=== PATIENT | female | born 1965 | race Caucasian/White ===

== ENCOUNTER 2020-11-24 09:18 | Observation (INO) ==
[2020-11-24] MEDS ORDERED: methylPREDNISolone 125 MG/2 ML VIAL IVP ONE (09:39)
[2020-11-24] MEDS ORDERED: Ipratropium/Albuterol Neb 3 ML IH ONE (09:41)
[2020-11-24 09:57] LABS: Basophils # 0.1 K/mcL (0.0-0.2); Basophils % 0.9 %; Eosinophils # 0.5 K/mcL (0.0-0.6); Eosinophils % 3.5 %; Hematocrit 45.3 % (35.3-44.9); Hemoglobin 15.2 g/dL (11.5-15.4); Immature Granulocytes % 0.5 % (0-4); Lymphocytes # 1.2 K/mcL (0.6-4.6); Lymphocytes % 8.9 %; Mean Corpuscular HGB Conc 33.6 g/dL (31.6-35.5); Mean Corpuscular Hemoglobin 33.6 pg (28.0-33.3); Mean Corpuscular Volume 100.2 fL (83.0-100.0); Mean Platelet Volume 9.3 fL (9.4-12.4); Monocytes # 0.6 K/mcL (0.0-1.3); Monocytes % 4.3 %; Neutrophils # 11.3 K/mcL (1.6-8.9); Platelet Count 318 K/mcL (140-400); Red Blood Count 4.52 M/mcL (3.82-4.97); Red Cell Distribution Width 12.6 % (11.5-14.5); Segmented Neutrophils % 81.9 %; White Blood Count 13.8 K/mcL (4.3-11.1)
[2020-11-24 10:16] LABS: BUN/Creatinine Ratio 15 (6-26); Blood Urea Nitrogen 12 mg/dL (6-20); Calcium 9.9 mg/dL (8.6-10.3); Carbon Dioxide 27 mEq/L (23-29); Chloride 104 mEq/L (98-107); Glucose 134 mg/dL (70-105); Osmolality,Calculated 286 (280-300); Potassium 4.4 mEq/L (3.5-5.1); Sodium 137 mEq/L (136-145); eGFR For African Americans > 60 (> 60); eGFR For Non-African Americans > 60 (> 60)
[2020-11-24] MEDS ORDERED: Aspirin 325 MG TABLET PO ONE (10:29)
[2020-11-24] MEDS ORDERED: *HR* Heparin 5,000 UNIT/ML VIAL IVP ONE (11:31)
[2020-11-24] MEDS ORDERED: *HR* Heparin 5,000 UNIT/ML VIAL IVP PRN ×2 (11:31)
[2020-11-24] MEDS ORDERED: Acetaminophen 325 MG TABLET PO PRN (12:17)
[2020-11-24] MEDS ORDERED: Naloxone 0.4 MG/ML INJ IVP PRN (12:17)
[2020-11-24] MEDS ORDERED: Ipratropium/Albuterol Neb 3 ML IH PRN (12:19)
[2020-11-24] MEDS ORDERED: Perflutren Lipid Microsphere 1.3 ML in 0.9 % Sodium Chloride 8.7 ML IVP PRN (12:19)
[2020-11-24 12:55] LABS: Hematocrit 43.7 % (35.3-44.9); Mean Corpuscular HGB Conc 34.3 g/dL (31.6-35.5); Mean Corpuscular Hemoglobin 34.3 pg (28.0-33.3); Mean Platelet Volume 9.8 fL (9.4-12.4); Platelet Count 309 K/mcL (140-400); Red Blood Count 4.37 M/mcL (3.82-4.97); Red Cell Distribution Width 12.5 % (11.5-14.5); White Blood Count 12.4 K/mcL (4.3-11.1)
[2020-11-24 13:07] LABS: Heparin anti-factor XA UFH < 0.04 IU/mL (0.30-0.70); INR 0.9; Prothrombin Time 10.8 Seconds (9.4-12.1)
[2020-11-24] MEDS: Azithromycin 500 MG in 0.9 % Sodium Chloride 250 ML IVPB SCH (13:40)
[2020-11-24] MEDS: Heparin 25,000UNIT/250ML 1/2NS 25,000 UNIT/250 ML IV.SOLN IVC SCH (13:40)
[2020-11-24 14:35] LABS: Adenovirus Not Detected (Not Detect); Bordetella Pertussis Not Detected (Not Detect); Chlamydophila pneumoniae Not Detected (Not Detect); Coronavirus 229E Not Detected (Not Detect); Coronavirus HKU1 Not Detected (Not Detect); Coronavirus NL63 Not Detected (Not Detect); Coronavirus OC43 Not Detected (Not Detect); Human Metapneumovirus Not Detected (Not Detect); Human Rhinovirus/Enterovirus Not Detected (Not Detect); Influenza A Subtype 2009 H1 Not Detected (Not Detect); Influenza B Not Detected (Not Detect); Mycoplasma pneumoniae Not Detected (Not Detect); Parainfluenza Virus 1 Not Detected (Not Detect); Parainfluenza Virus 2 Not Detected (Not Detect); Parainfluenza Virus 3 Not Detected (Not Detect); Parainfluenza Virus 4 Not Detected (Not Detect); Respiratory Syncytial Virus Not Detected (Not Detect); SARS-CoV-2 Not Detected (Not Detect)
[2020-11-24 14:46] LABS: Troponin I 0.82 ng/mL (< 0.04)
[2020-11-24] MEDS: Ipratropium/Albuterol Neb 3 ML IH SCH ×2 (16:42→22:04)
[2020-11-24] MEDS: MethylPREDNISolone 40 MG/ML VIAL IVP SCH (18:01)
[2020-11-24] MEDS: Metoprolol XL (24 HR) Succ 25 MG TAB.ER.24H PO SCH (18:01)
[2020-11-25] MEDS: Ipratropium/Albuterol Neb 3 ML IH SCH ×2 (03:44→10:05)
[2020-11-25 05:18] LABS: Basophils % 0.2 %; Eosinophils # 0.2 K/mcL (0.0-0.6); Eosinophils % 0.9 %; Hemoglobin 14.5 g/dL (11.5-15.4); Immature Granulocytes % 0.6 % (0-4); Lymphocytes # 1.2 K/mcL (0.6-4.6); Lymphocytes % 6.7 %; Mean Corpuscular HGB Conc 33.7 g/dL (31.6-35.5); Mean Corpuscular Hemoglobin 33.4 pg (28.0-33.3); Mean Corpuscular Volume 99.1 fL (83.0-100.0); Mean Platelet Volume 9.7 fL (9.4-12.4); Monocytes % 5.3 %; Neutrophils # 15.7 K/mcL (1.6-8.9); Platelet Count 311 K/mcL (140-400); Red Blood Count 4.34 M/mcL (3.82-4.97); Red Cell Distribution Width 12.6 % (11.5-14.5); Segmented Neutrophils % 86.3 %; White Blood Count 18.1 K/mcL (4.3-11.1)
[2020-11-25 05:36] LABS: BUN/Creatinine Ratio 18 (6-26); Blood Urea Nitrogen 13 mg/dL (6-20); Carbon Dioxide 24 mEq/L (23-29); Chloride 106 mEq/L (98-107); Chol/HDL Ratio 2.6 (0-4.9); Cholesterol 306 mg/dL (< 200); Glucose 154 mg/dL (70-105); HDL Cholesterol 118 mg/dL (40-59); LDL Cholesterol,Calculated 168 mg/dL (< 100); Osmolality,Calculated 291 (280-300); Sodium 139 mEq/L (136-145); Triglycerides 102 mg/dL (< 150); eGFR For African Americans > 60 (> 60); eGFR For Non-African Americans > 60 (> 60)
[2020-11-25] MEDS: MethylPREDNISolone 40 MG/ML VIAL IVP SCH (05:42)
[2020-11-25 08:24] LABS: Estimated Average Glucose 120 mg/dl; Hemoglobin A1C 5.8 %
[2020-11-25] MEDS ORDERED: Aspirin Enteric Coated 81 MG Tablet PO SCH (09:00)
[2020-11-25] MEDS: Metoprolol XL (24 HR) Succ 25 MG TAB.ER.24H PO SCH (09:44)
[2020-11-25 11:32] VITALS: BP 139/73; PULSE 71; TEMP 98.3; O2SAT 95
[2020-11-25] MEDS: Heparin 25,000UNIT/250ML 1/2NS 25,000 UNIT/250 ML IV.SOLN IVC SCH (12:24)
[2020-11-25] MEDS: Azithromycin 500 MG in 0.9 % Sodium Chloride 250 ML IVPB SCH (12:29)
[2020-11-25] MEDS ORDERED: Spironolactone 25 MG TABLET PO SCH (13:30)
== END 2020-11-25 14:05 | disposition left against medical advice (07) ==
LOC: EMEROOARM 09:18 → 3ANU 09:18
PROVIDERS: ADMIT Internal Medicine; ATTEND Internal Medicine

== ENCOUNTER 2020-11-26 01:33 | Inpatient (IN) ==
[2020-11-26] MEDS ORDERED: Nitroglycerin 0.4 MG TAB.SUBL SL PRN ×2 (02:21→03:45)
[2020-11-26] MEDS ORDERED: Aspirin 81 MG TAB.CHEW PO ONE (02:21)
[2020-11-26 02:45] LABS: Basophils # 0.1 K/mcL (0.0-0.2); Basophils % 0.5 %; Eosinophils # 0.2 K/mcL (0.0-0.6); Eosinophils % 1.1 %; Hematocrit 45.3 % (35.3-44.9); Immature Granulocytes % 0.3 % (0-4); Lymphocytes # 3.5 K/mcL (0.6-4.6); Lymphocytes % 19.7 %; Mean Corpuscular HGB Conc 33.1 g/dL (31.6-35.5); Mean Corpuscular Hemoglobin 33.5 pg (28.0-33.3); Mean Corpuscular Volume 101.1 fL (83.0-100.0); Mean Platelet Volume 9.5 fL (9.4-12.4); Monocytes # 0.8 K/mcL (0.0-1.3); Monocytes % 4.7 %; Neutrophils # 13.1 K/mcL (1.6-8.9); Platelet Count 315 K/mcL (140-400); Red Blood Count 4.48 M/mcL (3.82-4.97); Segmented Neutrophils % 73.7 %; White Blood Count 17.7 K/mcL (4.3-11.1)
[2020-11-26 03:06] LABS: BUN/Creatinine Ratio 24 (6-26); Blood Urea Nitrogen 21 mg/dL (6-20); Calcium 10.7 mg/dL (8.6-10.3); Carbon Dioxide 28 mEq/L (23-29); Chloride 104 mEq/L (98-107); Glucose 86 mg/dL (70-105); Lipase 31 Units/L (11-82); Osmolality,Calculated 288 (280-300); Potassium 3.7 mEq/L (3.5-5.1); Sodium 138 mEq/L (136-145); eGFR For African Americans > 60 (> 60); eGFR For Non-African Americans > 60 (> 60)
[2020-11-26] MEDS ORDERED: *HR* Heparin 5,000 UNIT/ML VIAL IVP ONE (03:06)
[2020-11-26] MEDS ORDERED: *HR* Heparin 5,000 UNIT/ML VIAL IVP PRN ×2 (03:06)
[2020-11-26 03:08] LABS: Troponin I 0.36 ng/mL (< 0.04)
[2020-11-26] MEDS ORDERED: Heparin 25,000UNIT/250ML 1/2NS 25,000 UNIT/250 ML IV.SOLN IVC SCH (03:15)
[2020-11-26 03:35] LABS: Heparin anti-factor XA UFH < 0.04 IU/mL (0.30-0.70)
[2020-11-26 03:36] LABS: INR 0.8; Prothrombin Time 9.5 Seconds (9.4-12.1)
[2020-11-26] MEDS ORDERED: Morphine Sulfate 2 MG/ML SYRINGE IVP PRN (03:46)
[2020-11-26] MEDS ORDERED: Naloxone 0.4 MG/ML INJ IVP PRN (03:48)
[2020-11-26] MEDS ORDERED: Acetaminophen 325 MG TABLET PO PRN (03:48)
[2020-11-26] MEDS ORDERED: Ondansetron 4 MG/2 ML VIAL IVP PRN (03:48)
[2020-11-26] MEDS ORDERED: *HR* LORazepam 2 MG/ML VIAL IVP ONE (03:59)
[2020-11-26 04:14] LABS: Ethanol < 10 mg/dL (Less than 10)
[2020-11-26] MEDS ORDERED: Levalbuterol Neb 1.25 MG/3 ML IH PRN (04:15)
[2020-11-26 05:13] LABS: Bilirubin,Urine Negative (Negative); Blood,Urine Negative (Negative); Clarity,Urine Clear (Clear); Color,Urine Colorless (Yellow); Glucose,Urine (UA) Normal (Normal); Ketones,Urine Negative (Negative); Leukocyte Esterase,Urine Negative (Negative); Nitrite,Urine Negative (Negative); PH,Urine 6.5 pH Units (5.0-8.0); Protein,Urine Negative (Neg-Trace); Specific Gravity,Urine 1.009 (1.010-1.025); Urobilinogen,Urine Normal (Normal)
[2020-11-26] MEDS: Spironolactone 25 MG TABLET PO SCH (09:49)
[2020-11-26] MEDS: Metoprolol XL (24 HR) Succ 25 MG TAB.ER.24H PO SCH (09:50)
[2020-11-26] MEDS ORDERED: 0.9 % Sodium Chloride 2,000 ML ONE (12:15)
[2020-11-26] MEDS ORDERED: ISOVUE-370 200 ML INFUS..BTL ONE (12:15)
[2020-11-26] MEDS ORDERED: Nitroglycerin 1,000 MCG/5 ML VIAL IV ONE (12:15)
[2020-11-26] MEDS ORDERED: *HR* Heparin 10,000 UNIT/10 ML VIAL ONE (12:15)
[2020-11-26] MEDS ORDERED: Heparin 1,000 UNITS/500 mL 500 ML ONE (12:15)
[2020-11-26] MEDS ORDERED: *HR* FentaNYL (PF) 100 MCG/2 ML VIAL ONE (12:19)
[2020-11-26] MEDS ORDERED: *HR* Midazolam HCl 2 MG/2 ML VIAL ONE (12:19)
[2020-11-26] MEDS: 0.9 % Sodium Chloride 1,000 ML IVC SCH (17:33)
[2020-11-26] MEDS: Levalbuterol Neb 1.25 MG/3 ML IH SCH (21:47)
[2020-11-26] MEDS ORDERED: Albuterol 2.5 MG/3 ML NEBULIZER IH SCH (22:00)
[2020-11-27 01:21] LABS: Hematocrit 40.2 % (35.3-44.9); Hemoglobin 13.6 g/dL (11.5-15.4); Mean Corpuscular HGB Conc 33.8 g/dL (31.6-35.5); Mean Corpuscular Hemoglobin 33.8 pg (28.0-33.3); Mean Platelet Volume 9.6 fL (9.4-12.4); Platelet Count 267 K/mcL (140-400); Red Blood Count 4.02 M/mcL (3.82-4.97); Red Cell Distribution Width 12.7 % (11.5-14.5); White Blood Count 11.3 K/mcL (4.3-11.1)
[2020-11-27 01:43] LABS: BUN/Creatinine Ratio 27 (6-26); Blood Urea Nitrogen 24 mg/dL (6-20); Calcium 9.1 mg/dL (8.6-10.3); Carbon Dioxide 24 mEq/L (23-29); Chloride 107 mEq/L (98-107); Glucose 101 mg/dL (70-105); Magnesium 1.8 mg/dL (1.6-2.6); Osmolality,Calculated 290 (280-300); Phosphorous 4.5 mg/dL (2.7-4.5); Potassium 4.1 mEq/L (3.5-5.1); Sodium 138 mEq/L (136-145); eGFR For African Americans > 60 (> 60); eGFR For Non-African Americans > 60 (> 60)
[2020-11-27] MEDS: Levalbuterol Neb 1.25 MG/3 ML IH SCH ×4 (04:05→22:14)
[2020-11-27] MEDS: Spironolactone 25 MG TABLET PO SCH (08:37)
[2020-11-27] MEDS: Aspirin Enteric Coated 81 MG Tablet PO SCH (08:37)
[2020-11-27] MEDS: Metoprolol XL (24 HR) Succ 25 MG TAB.ER.24H PO SCH (08:37)
[2020-11-27] MEDS: 0.9 % Sodium Chloride 1,000 ML IVC SCH (08:38)
[2020-11-27] MEDS ORDERED: Spironolactone 25 MG TABLET PO SCH (11:53)
[2020-11-27] MEDS ORDERED: Metoprolol XL (24 HR) Succ 25 MG TAB.ER.24H PO SCH (11:53)
[2020-11-27] MEDS ORDERED: *HR* Bivalirudin 250 MG VIAL IVC ONE (13:15)
[2020-11-27] MEDS ORDERED: 0.9 % Sodium Chloride 2,000 ML ONE (13:16)
[2020-11-27] MEDS ORDERED: ISOVUE-370 200 ML INFUS..BTL ONE ×2 (13:16→14:22)
[2020-11-27] MEDS ORDERED: *HR* FentaNYL (PF) 100 MCG/2 ML VIAL ONE (13:16)
[2020-11-27] MEDS ORDERED: *HR* Midazolam HCl 2 MG/2 ML VIAL ONE (13:16)
[2020-11-27] MEDS ORDERED: Heparin 1,000 UNITS/500 mL 500 ML ONE (13:16)
[2020-11-27] MEDS ORDERED: *HR* Heparin 10,000 UNIT/10 ML VIAL ONE (13:16)
[2020-11-27] MEDS ORDERED: Nitroglycerin 1,000 MCG/5 ML VIAL IV ONE (13:17)
[2020-11-27] MEDS ORDERED: *HR* Ticagrelor 90 MG TABLET ONE (14:31)
[2020-11-27] MEDS: *HR* Ticagrelor 90 MG TABLET PO SCH (20:36)
[2020-11-28 02:38] LABS: Hematocrit 41.9 % (35.3-44.9); Hemoglobin 14.6 g/dL (11.5-15.4); Mean Corpuscular HGB Conc 34.8 g/dL (31.6-35.5); Mean Corpuscular Hemoglobin 34.6 pg (28.0-33.3); Mean Corpuscular Volume 99.3 fL (83.0-100.0); Mean Platelet Volume 9.9 fL (9.4-12.4); Platelet Count 269 K/mcL (140-400); Red Blood Count 4.22 M/mcL (3.82-4.97); Red Cell Distribution Width 12.6 % (11.5-14.5)
[2020-11-28 03:09] LABS: Magnesium 1.9 mg/dL (1.6-2.6); Phosphorous 4.9 mg/dL (2.7-4.5)
[2020-11-28 03:10] LABS: BUN/Creatinine Ratio 28 (6-26); Blood Urea Nitrogen 24 mg/dL (6-20); Calcium 9.7 mg/dL (8.6-10.3); Carbon Dioxide 23 mEq/L (23-29); Chloride 103 mEq/L (98-107); Glucose 96 mg/dL (70-105); Osmolality,Calculated 286 (280-300); Potassium 3.7 mEq/L (3.5-5.1); Sodium 136 mEq/L (136-145); eGFR For African Americans > 60 (> 60); eGFR For Non-African Americans > 60 (> 60)
[2020-11-28] MEDS: Levalbuterol Neb 1.25 MG/3 ML IH SCH ×2 (03:58→10:10)
[2020-11-28 04:14] VITALS: PULSE 75; TEMP 97.7
[2020-11-28 07:11] VITALS: BP 95/61
[2020-11-28] MEDS: *HR* Ticagrelor 90 MG TABLET PO SCH (09:08)
[2020-11-28] MEDS: Aspirin Enteric Coated 81 MG Tablet PO SCH (09:08)
[2020-11-28 10:12] VITALS: O2SAT 93
== END 2020-11-28 14:39 | disposition home or self-care (01) | DRG 174 ==
LOC: 3ANU 01:33 → EMEROOARM 01:33 → 3ANU 03:37 → 2NENU 11-27 15:14
PROVIDERS: ADMIT Family Medicine; ATTEND Family Medicine